=== PATIENT | female | born 1990 | race Caucasian/White ===

== ENCOUNTER → 2017-07-13 13:45 | Outpatient (CLI) | payer SELFPAY ==
[2017-07-13 19:25] LABS: Chlamydia Trachomatis by PCR Negative (Negative); Neisserai gonorrhoeae by PCR Negative (Negative); Probe Check PASS; Sample Adequacy Control PASS; Specimen Processing Control PASS
== END ==
PROVIDERS: Visit Provider Obstetrics & Gynecology
DX: Z11.3 Encounter for screening for infections with a predominantly sexual mode of transmission (principal)
CPT/HCPCS: 87491; 87591

== ENCOUNTER → 2017-07-27 16:26 | Outpatient (CLI) | payer MEDICAID, SELFPAY ==
[2017-07-27 16:46] LABS: Color, Urine Yellow (Yellow); Glucose, Dipstick Normal (Normal); Ketone-Dipstick Negative (Negative); Leukocyte Esterase-Dipstick Negative /ul (Negative); Nitrite-Dipstick Negative (Negative); Occult Blood-Urine Negative /ul (Negative); Protein-Dipstick Negative (Negative); Specific Gravity, Urine 1.015 (1.002-1.030); Urine Bilirubin Dipstick Negative (Negative); Urine Clarity Sl. Cloudy (Clear); Urine Urobilinogen Normal (Normal)
[2017-07-27 16:57] LABS: Absolute Lymphocyte Count 2.27 X10^3/ul (0.83-4.51); Absolute Neutrophil Count 6.4 X10^3/uL (2.0-7.7); Basophil# 0.04 X10^3/uL; Basophil% 0.4 % (0-1); Eosinophil# 0.15 X10^3/uL; Eosinophils% 1.6 % (0-5); Hematocrit 38.2 % (37-47); Hemoglobin 12.6 g/dl (12.0-15.0); Lymphocyte # 2.27 X10^3/ul (4.0); Lymphocyte % 23.5 % (19-41); Mean Corpuscular Hgb 28.1 pg (27.0-32.0); Mean Corpuscular Volume 85.1 fL (81-99); Mean Platelet Vol. 9.6 fl (6.2-12.0); Monocyte# 0.78 X10^3/uL; Monocyte% 8.1 % (0-10); Neutrophil # 6.39 X10^3/uL (2.7-7.7); Neutrophil % 66.3 % (47-70); Platelet Count 325 K/mm3 (150-450); RBC Distribution Width CV 14.4 % (11.6-14.6); Red Blood Count 4.49 M/mm3 (4.2-5.4); White Blood Count 9.6 K/mm3 (4.4-11.0)
[2017-07-27 17:04] LABS: POSITIVE COUNT NO; POSITIVE DIFFERENTIAL NO; POSITIVE MORPHOLOGY NO
[2017-07-27 17:20] LABS: Thyroid Stim Hormone (TSH) 1.02 uIU/mL (0.358-3.74)
[2017-07-27 17:36] LABS: Amphetamine Urine VISTA NEGATIVE (<1000 ng/mL); Barbiturate Urine VISTA NEGATIVE (< 200 ng/mL); Benzodiazepine Urine VISTA NEGATIVE (< 200 ng/mL); Cocaine Urine VISTA NEGATIVE (< 300 ng/mL); Ecstacy Urine VISTA NEGATIVE (< 500 ng/mL); Methadone Urine VISTA NEGATIVE (< 300 ng/mL); PCP Urine VISTA NEGATIVE (< 25 ng/mL); THC Urine VISTA NEGATIVE (< 50 ng/mL); Vista UDS pH Range 6
[2017-07-27 18:05] LABS: HIV - WCH Non-Reactive (Nonreactive); Rubella IgG 180.7 IU/mL
[2017-07-30 12:05] LABS: HEPATITIS B SURFACE AG Negative (Negative); Hep C Antibodies <0.1 s/co ratio (0.0-0.9)
[2017-08-03 01:05] LABS: Prenatal RPR NONREACTIVE (NONREACTIVE)
== END ==
PROVIDERS: Visit Provider Obstetrics & Gynecology
DX: Z34.81 Encounter for supervision of other normal pregnancy, first trimester (principal)
CPT/HCPCS: 80307; 81002; 84443; 85025; 86703; 86762; 86803; 87340

== ENCOUNTER → 2017-12-11 10:05 | Outpatient (CLI) | payer SELFPAY ==
[2017-12-11 14:07] LABS: Hematocrit 33.6 % (37-47); Mean Corp Hgb Conc 32.7 g/gl (32-36); Mean Corpuscular Hgb 28.3 pg (27.0-32.0); Mean Corpuscular Volume 86.4 fL (81-99); Mean Platelet Vol. 9.6 fl (6.2-12.0); Platelet Count 343 K/mm3 (150-450); RBC Distribution Width CV 14.3 % (11.6-14.6); RBC Distribution Width SD 44.3 fl (35.1-43.9); Red Blood Count 3.89 M/mm3 (4.2-5.4); White Blood Count 12.6 K/mm3 (4.4-11.0)
[2017-12-11 14:16] LABS: Scan Indicated on CBC? Y/N NO
[2017-12-11 14:17] LABS: Glucose Challenge Gest 1H 50g 91 mg/dL (70-140)
== END ==
PROVIDERS: Visit Provider Obstetrics & Gynecology
DX: Z34.83 Encounter for supervision of other normal pregnancy, third trimester (principal)
CPT/HCPCS: 36415; 82950; 85027

== ENCOUNTER → 2017-12-25 13:39 | Outpatient (CLI) | payer SELFPAY | PROVIDERS: Visit Provider Obstetrics & Gynecology | DX: N39.0 Urinary tract infection, site not specified (principal) | CPT/HCPCS: 87086; 87088 ==

== ENCOUNTER → 2018-02-04 10:26 | Outpatient (CLI) | payer SELFPAY ==
[2018-02-04 14:56] LABS: Group B Strep DNA By PCR Negative (Negative); Internal Control PASS; Probe Check PASS; Specimen Processing Control PASS
== END ==
PROVIDERS: Visit Provider Obstetrics & Gynecology
DX: Z36.85 Encounter for antenatal screening for Streptococcus B (principal)
CPT/HCPCS: 87081; 87653

== ENCOUNTER 2018-03-11 12:00 | Inpatient (IN) | payer SELFPAY ==
[2018-03-11 11:57] LABS: ROM Internal Control Test YES-OK TO RESULT pt. (Internal QC)
[2018-03-11 11:59] LABS: ROM Patient Test POSITIVE (Negative)
[2018-03-11] MEDS: Lactated Ringers 1,000 ML 50 ML IV ×2 (12:50→18:54)
[2018-03-11 13:21] LABS: Hematocrit 37.7 % (37-47); Hemoglobin 12.5 g/dl (12.0-15.0); Mean Corp Hgb Conc 33.2 g/gl (32-36); Mean Corpuscular Volume 84.5 fL (81-99); Mean Platelet Vol. 10.2 fl (6.2-12.0); Platelet Count 300 K/mm3 (150-450); RBC Distribution Width CV 15.5 % (11.6-14.6); RBC Distribution Width SD 48.1 fl (35.1-43.9); Red Blood Count 4.46 M/mm3 (4.2-5.4); White Blood Count 18.5 K/mm3 (4.4-11.0)
[2018-03-11 13:31] LABS: Scan Indicated on CBC? Y/N NO
[2018-03-11] MEDS: Nalbuphine 10 MG/ML Ampul IV (15:00)
[2018-03-11] MEDS: Ondansetron 4 MG/2 ML Vial IV (16:46)
[2018-03-11] MEDS: Oxytocin 30 units/NS 500 ml 30 UNITS/500 ML IV.SOLN 334 UNITS IV (22:20)
[2018-03-11] MEDS: Oxytocin 30 units/NS 500 ml 30 UNITS/500 ML IV.SOLN 167 UNITS IV (22:50)
--- NOTE | 2018-03-11 23:00 | OP.PCM_ITS ---
- Problem List (1) 40 weeks gestation of Status: Acute (2) Status post vacuum-assisted vaginal delivery Status: Acute (3) Shoulder dystocia, delivered Status: Acute Vaginal Delivery Maternal Presentation: Active Labor, Spontaneous Rupture of Membranes Amniotic Membrane Rupture Type: Spontaneous at home Rupture of Membrane time: 03/11/18 0430h Amniotic Fluid Description: Clear Final KAREN: 03/06/18 Gestational age: 40 Weeks and 5 Days [place] doctor who attended delivery (if requested by OB): Tia Heart Date of Procedure: 03/11/18 Pre-Operative Diagnosis: 40 5/7wga, maternal fatigue Post-Operative Diagnosis: 40 5/7wga, maternal fatigue Surgery/ Procedure Performed: Vacuum Assisted Vaginal Delivery Anesthesiologist: Jaylen Shea Type of Anesthesia: Epidural Description of Procedure: Patient was FD/+3 station on my arrival. She reported significant fatigue after pushing for more than 3 hours. On exam SVE FD/+3 with caput and direct OA. I discussed with patient and her use of vacuum, indications, benefits and risks including severe maternal laceration, scalp edema, hematoma, scalp laceration with possible infection or need for sutures, subgaleal hemorrhage, failure. The patient reported understanding and desired to proceed. FHR had remained Cat I-II. The Kiwi cap was placed at the flexion point and 500mmHg applied at 2159h. The patient pushed with good maternal effort over approximately 5 contractions with excellent descent. There were 5 pulls with no pop-offs. The vacuum was release with delivery of the brow. With continued pushing the head delivered and there was turtling of the neck. I advised the patient to stop pushing. The patient was placed supine and Bimal employed. Suprapubic pressure was subsequently performed. I reached for the posterior arm, however, there was posterior tissue dystocia also. I cut a right mediolateral episiotomy and subsequently delivered the posterior (right) arm. With continued pushing a female delivered with terminal meconium at 2219h. The cord was doubly c lamped and cut and the passed to the awaiting Pediatric Hospitalist. Cord gases were obtained. The placenta delivered spontaneously and appeared intact on inspection. The second degree left mediolateral episiotomy was repaired using 3-0 Vicryl Rapide. A right vaginal laceration was also repaired with 3-0 Rapide with hemostasis attained. Sponge and needle counts were correct x 2. Presentation: Vertex Placental Delivery Description: Spontaneous Placenta Disposition: [facility] Cord Vessel Description: 3 Vessels Nuchal Cord Compression: Without compression Cord Gases drawn per routine: ABG, VBG Cord Entanglement: None Drain: Martinez to straight drain Estimated Blood Loss: 350 ml Infant A gender: Female (1 minute): 7 (5 minute): 8 Episiotomy Description: Left Mediolateral, Vaginal Extension/lac, 2nd degree Laceration: Vaginal Extension/lac, 1st degree Medications given after delivery: IV Pitocin Complications: None
[2018-03-12] MEDS: 0.9% Saline Lock 10 ML Syringe IV (01:39)
[2018-03-12 02:00] VITALS: BP 113/59; PULSE 90; RESP 16; TEMP 36.6; O2SAT 97
[2018-03-12 08:00] VITALS: BP 100/56; PULSE 92; RESP 16; TEMP 36.8
[2018-03-12 08:30] LABS: Hematocrit 35.2 % (37-47); Hemoglobin 11.6 g/dl (12.0-15.0); Mean Corpuscular Hgb 27.8 pg (27.0-32.0); Mean Corpuscular Volume 84.2 fL (81-99); Mean Platelet Vol. 9.5 fl (6.2-12.0); Platelet Count 247 K/mm3 (150-450); RBC Distribution Width CV 15.5 % (11.6-14.6); RBC Distribution Width SD 47.3 fl (35.1-43.9); Red Blood Count 4.18 M/mm3 (4.2-5.4); White Blood Count 22.6 K/mm3 (4.4-11.0)
[2018-03-12 08:33] LABS: Scan Indicated on CBC? Y/N NO
[2018-03-12] MEDS: Ibuprofen 600 MG Tablet PO ×2 (08:57→16:36)
[2018-03-12] MEDS: Prenatal Vits Tablet 1 TABLET PO (08:57)
[2018-03-12] MEDS: Senna/Docusate Sodium 1 Tablet PO (08:58)
--- NOTE | 2018-03-12 12:54 | PCM.PN.OB ---
Patient Problems: Active and Suspected Problems 40 weeks gestation of (Acute) Status post vacuum-assisted vaginal delivery (Acute) Shoulder dystocia, delivered (Acute) Subjective: No issues overnight. nursing well. Margaret is sore and has intermittent cramping which is well controlled with Ibuprofen. OOB and ambulating without difficulty. No issues voiding. Denies heavy lochia. Objective: AVSS - Physical Exam General: Alert, Oriented x3, Cooperative, No apparent distress HEENT: Atraumatic, Normocephalic Lungs: Normal air movement Cardiovascular: Regular rate, Regular Rhythm, Normal S1, Normal S2 Abdomen: Soft, Non Tender, Non-Distended, - - Fundus firm and nontender Extremities: No edema, No Calf Tenderness Neurological: Neuro grossly intact Psych/Mental Status: Normal Affect, Appropriate, Alert and oriented to time, place, person, mood and affect Vital Signs Temp Pulse Resp BP Pulse Ox 98.3 F 92 16 100/56 L 97 03/12/18 08:00 03/12/18 08:00 03/12/18 08:00 03/12/18 08:00 03/12/18 02:00 Oxygen Delivery Method Room Air Weight: 87.09 kg Body Mass Index (BMI) 30.0 Intake and Output for Last 24 Hours 03/10/18 03/11/18 03/12/18 23:59 23:59 23:59 Intake Total 494 / 494 Output Total 1800 / 1800 Balance -1306 / -1306 Laboratory Tests Past 24 Hrs 03/11/18 03/11/18 03/12/18 12:50 12:50 08:25 WBC 18.5 H 22.6 H RBC 4.46 4.18 L Hgb 12.5 11.6 L Hct 37.7 35.2 L MCV 84.5 84.2 MCH 28.0 27.8 MCHC 33.2 33.0 RDW 15.5 H 15.5 H RDW Differential 48.1 H 47.3 H Plt Count 300 247 MPV 10.2 9.5 Blood Type A POSITIVE Antibody Screen NEGATIVE Medical Necessity - Tobacco Use Smoking Status: Never smoker Assessment/Plan All Active Problems 40 weeks gestation of (Acute) Status post vacuum-assisted vaginal delivery (Acute) Shoulder dystocia, delivered (Acute) 27yo PPD#1 s/p VAVD with shoulder dystocia -wbc elevation likely 2/2 labor, delivery - cortisol response. Repeat in am. - -Rh positive -Routine care
[2018-03-12 13:00] VITALS: BP 104/62; PULSE 76; RESP 15; TEMP 36.3
[2018-03-12 16:00] VITALS: BP 106/70; PULSE 94; RESP 20; TEMP 36.3
[2018-03-12 20:00] VITALS: BP 116/73; PULSE 90; RESP 18; TEMP 36.7; O2SAT 99
[2018-03-12] MEDS: Acetaminophen 325 MG Tablet PO (20:39)
[2018-03-13 02:00] VITALS: BP 103/62; PULSE 80; RESP 18; TEMP 36.4
[2018-03-13 05:38] LABS: Absolute Lymphocyte Count 3.21 X10^3/ul (0.83-4.51); Absolute Neutrophil Count 13.1 X10^3/uL (2.0-7.7); Basophil# 0.05 X10^3/uL; Basophil% 0.3 % (0-1); Eosinophil# 0.28 X10^3/uL; Eosinophils% 1.5 % (0-5); Hematocrit 34.6 % (37-47); Hemoglobin 11.5 g/dl (12.0-15.0); Lymphocyte # 3.21 X10^3/ul (4.0); Lymphocyte % 17.2 % (19-41); Mean Corp Hgb Conc 33.2 g/gl (32-36); Mean Corpuscular Hgb 28.4 pg (27.0-32.0); Mean Corpuscular Volume 85.4 fL (81-99); Mean Platelet Vol. 9.7 fl (6.2-12.0); Monocyte# 1.98 X10^3/uL; Monocyte% 10.6 % (0-10); Neutrophil # 13.06 X10^3/uL (2.7-7.7); Neutrophil % 69.7 % (47-70); Platelet Count 291 K/mm3 (150-450); RBC Distribution Width CV 15.5 % (11.6-14.6); RBC Distribution Width SD 47.7 fl (35.1-43.9); Red Blood Count 4.05 M/mm3 (4.2-5.4); White Blood Count 18.7 K/mm3 (4.4-11.0)
[2018-03-13 05:40] LABS: Differential Indicated SCAN CRITERIA MET; POSITIVE COUNT NO; POSITIVE DIFFERENTIAL YES; POSITIVE MORPHOLOGY NO
--- NOTE | 2018-03-13 06:41 | DCINST_ITS ---
Discharge Diet: No Restrictions Discharge Activity: May Shower, May Take a Tub Bath May resume sexual activity in: 4-6 weeks Additional Activity Instructions:: Nothing in the vagina for 4-6 weeks. You may return to work/school in 6 weeks. Additional Instructions: If you experience any of the following, contact your healthcare provider. * Bleeding that soaks a pad every hour for 2 hours * Fever 100.4 or higher * Unrelieved abdominal pain * Problems urinating (including inability to urinate or burning while urinating). * Visual changes * Severe headache * Flu-like symptoms * Pain or redness in one of both of your breasts * Pain, warmth, tenderness or swelling in your legs, especially the calf area * Frequent nausea and vomiting * Symptoms of depression or anxiety If you experience any of the following, call 911 or go to the nearest Emergency Room. * Chest pain * Problems breathing * Seizure activity * Partial or complete paralysis of a body part, slurred speech, weakness or drooping of the face, or a sudden inability to walk or hold your balance Allergies/Adverse Reactions: Allergies No Known Allergies Allergy (Verified 03/11/18 11:18) Medications to take at Discharge Evening Morrow Oil 500 mg PO TID 03/11/18 Ferrous Gluconate 325 mg PO DAILY@0800 03/11/18 Vits [Prenatabs FA] 1 tablet PO DAILY 03/11/18 Please Follow Up With: Kathie Allen MD - [phone] When: Call to make an appointment with your doctor in 6 weeks. Primary Care Physician: Care Physician,No Primary [Primary Care Provider] - Test Results: Test results from this visit will be discussed in further detail at your follow-up appointment, if applicable. Proposed Discharge Date: 03/13/18
--- NOTE | 2018-03-13 06:51 | PN.OBGYN_ITS ---
Patient Problems: Active and Suspected Problems 40 weeks gestation of (Acute) Status post vacuum-assisted vaginal delivery (Acute) Shoulder dystocia, delivered (Acute) Subjective: PPD#2 Vacuum assisted vag delivery shoulder dystocia Doing well No concerns voiced. Breast feeding. Objective: lying in bed resting. Rouses to voice - Physical Exam General: Alert, Oriented x3, Cooperative, No apparent distress HEENT: Atraumatic Neck: Supple Abdomen: Soft - Fundus firm NT at umbilicus - 1-2 cm. Psych/Mental Status: Normal Affect Vital Signs Temp Pulse Resp BP Pulse Ox 97.6 F L 80 18 103/62 99 03/13/18 02:00 03/13/18 02:00 03/13/18 02:00 03/13/18 02:00 03/12/18 20:00 Oxygen Delivery Method Room Air Weight: 87.09 kg Body Mass Index (BMI) 30.0 Intake and Output for Last 24 Hours 03/11/18 03/12/18 03/13/18 23:59 23:59 23:59 Intake Total 494 / 494 Output Total 1800 / 1800 Balance -1306 / -1306 Laboratory Tests Past 24 Hrs 03/12/18 03/13/18 08:25 05:30 WBC 22.6 H 18.7 H RBC 4.18 L 4.05 L Hgb 11.6 L 11.5 L Hct 35.2 L 34.6 L MCV 84.2 85.4 MCH 27.8 28.4 MCHC 33.0 33.2 RDW 15.5 H 15.5 H RDW Differential 47.3 H 47.7 H Plt Count 247 291 MPV 9.5 9.7 Immature Gran % (Auto) 0.700 Neut % (Auto) 69.7 Lymph % (Auto) 17.2 L [place] % (Auto) 10.6 H Eos % (Auto) 1.5 Baso % (Auto) 0.3 Absolute Neuts (auto) 13.1 H Absolute Lymphs (auto) 3.21 Total Counted Not Reportable Medical Necessity - Tobacco Use Smoking Status: Never smoker Assessment/Plan All Active Problems 40 weeks gestation of (Acute) Status post vacuum-assisted vaginal delivery (Acute) Shoulder dystocia, delivered (Acute) PPD#2 VAVD Doing well. Home today. RTO in 6 wk prn sooner.
[2018-03-13 08:00] VITALS: BP 102/68; PULSE 78; RESP 20; TEMP 36.6
[2018-03-13] MEDS: Prenatal Vits Tablet 1 TABLET PO (09:11)
[2018-03-13] MEDS: Ibuprofen 600 MG Tablet PO (09:11)
[2018-03-13 10:50] VITALS: BP 102/68; PULSE 78; RESP 20; TEMP 36.6
== END 2018-03-13 11:00 | disposition home or self-care (01) | DRG 806 ==
LOC: WPOUT 12:03
PROVIDERS: Obstetrics & Gynecology; Admitting Provider Obstetrics & Gynecology; Referring Provider Obstetrics & Gynecology; Visit Provider Obstetrics & Gynecology
DX: O66.0 Obstructed labor due to shoulder dystocia (principal); O71.4 Obstetric high vaginal laceration alone; Z37.0 Single live birth; O48.0 Post-term pregnancy; Z3A.40 40 weeks gestation of pregnancy; O77.0 Labor and delivery complicated by meconium in amniotic fluid; O69.81X0 Labor and delivery complicated by cord around neck, without compression, not applicable or unspecified
CPT/HCPCS: 59025; 59050; 84112; 85025; 85027; 86850; 86900; 99218; J7120; A4216; G0378; J2405

== ENCOUNTER → 2018-05-02 14:36 | Outpatient (CLI) | payer SELFPAY | PROVIDERS: Visit Provider Obstetrics & Gynecology | DX: Z12.4 Encounter for screening for malignant neoplasm of cervix (principal) | CPT/HCPCS: 88175; G0145 ==

== ENCOUNTER → 2018-11-07 17:13 | Outpatient (CLI) | payer SELFPAY ==
[2018-11-07 20:06] LABS: Chlamydia Trachomatis by PCR Negative (Negative); Neisserai gonorrhoeae by PCR Negative (Negative); Probe Check PASS; Sample Adequacy Control PASS; Specimen Processing Control PASS
== END ==
PROVIDERS: Referring Provider Obstetrics & Gynecology; Visit Provider Obstetrics & Gynecology
DX: Z11.3 Encounter for screening for infections with a predominantly sexual mode of transmission (principal); Z32.01 Encounter for pregnancy test, result positive
CPT/HCPCS: 87491; 87591

== ENCOUNTER → 2018-12-05 | Outpatient (CLI) | payer SELFPAY ==
[2018-12-05 15:49] LABS: Absolute Lymphocyte Count 2.18 X10^3/uL (0.83-4.51); Absolute Neutrophil Count 8.1 X10^3/uL (2.0-7.7); Basophil# 0.04 X10^3/uL; Basophil% 0.4 % (0-1); Eosinophil# 0.16 X10^3/uL; Eosinophils% 1.4 % (0-5); Hematocrit 37.4 % (37-47); Hemoglobin 12.4 g/dL (12.0-15.0); Lymphocyte # 2.18 X10^3/ul (4.0); Lymphocyte % 19.6 % (19-41); Mean Corp Hgb Conc 33.2 g/dL (32-36); Mean Corpuscular Volume 87.4 fL (81-99); Mean Platelet Vol. 9.8 fl (6.2-12.0); Monocyte# 0.62 X10^3/uL; Monocyte% 5.6 % (0-10); NRBC Flagged by Analyzer 0 % (0-5); Neutrophil # 8.07 X10^3/uL (2.7-7.7); Neutrophil % 72.6 % (47-70); Platelet Count 330 K/mm3 (150-450); RBC Distribution Width CV 13.9 % (11.6-14.6); RBC Distribution Width SD 44.6 fl (35.1-43.9); Red Blood Count 4.28 M/mm3 (4.2-5.4); White Blood Count 11.1 K/mm3 (4.4-11.0)
[2018-12-05 15:52] LABS: Color, Urine Straw (Yellow); Glucose, Dipstick Normal (Normal); Ketone-Dipstick Negative (Negative); Leukocyte Esterase-Dipstick Negative /ul (Negative); Nitrite-Dipstick Negative (Negative); Occult Blood-Urine Negative /ul (Negative); Protein-Dipstick Negative (Negative); Specific Gravity, Urine 1.015 (1.002-1.030); Urine Bilirubin Dipstick Negative (Negative); Urine Clarity Clear (Clear); Urine Urobilinogen Normal (Normal)
[2018-12-05 16:09] LABS: Thyroid Stim Hormone (TSH) 0.75 uIU/mL (0.358-3.74)
[2018-12-06 02:06] LABS: Prenatal RPR NONREACTIVE (NONREACTIVE)
[2018-12-06 13:19] LABS: HIV - WCH Non-Reactive (Nonreactive); Hepatitis B Surface Antigen Non-Reactive (Nonreactive); Hepatitis C Antibody Non-Reactive (Nonreactive); Rubella IgG 108.6 IU/mL
== END | disposition home or self-care (01) ==
LOC: WOBLAB 14:11
PROVIDERS: Visit Provider Obstetrics & Gynecology
DX: Z34.82 Encounter for supervision of other normal pregnancy, second trimester (principal)
CPT/HCPCS: 36415; 81002; 84443; 85025; 86703; 86762; 86803; 87340

== ENCOUNTER → 2019-03-06 10:12 | Outpatient (CLI) | payer SELFPAY ==
[2019-03-06 11:02] LABS: Hematocrit 33.2 % (37-47); Hemoglobin 10.8 g/dL (12.0-15.0); Mean Corp Hgb Conc 32.5 g/dL (32-36); Mean Corpuscular Hgb 27.6 pg (27.0-32.0); Mean Corpuscular Volume 84.9 fL (81-99); Mean Platelet Vol. 9.6 fl (6.2-12.0); Platelet Count 284 K/mm3 (150-450); RBC Distribution Width CV 13.6 % (11.6-14.6); RBC Distribution Width SD 42.2 fl (35.1-43.9); Red Blood Count 3.91 M/mm3 (4.2-5.4); White Blood Count 10.4 K/mm3 (4.4-11.0)
[2019-03-06 11:12] LABS: Glucose Challenge Gest 1H 50g 144 mg/dL (70-140)
== END ==
PROVIDERS: Visit Provider Obstetrics & Gynecology
DX: Z34.83 Encounter for supervision of other normal pregnancy, third trimester (principal)
CPT/HCPCS: 82950; 85027

== ENCOUNTER → 2019-03-13 09:52 | Outpatient (CLI) | payer SELFPAY ==
[2019-03-13 11:32] LABS: Glucose GTT-Gestation. Fasting 75 mg/dL (<105)
[2019-03-13 12:58] LABS: Glucose GTT-Gestational 1 Hr 130 mg/dL (<190)
[2019-03-13 13:20] LABS: Glucose GTT-Gestational 2 Hr 100 mg/dL (<165)
[2019-03-13 13:44] LABS: Glucose GTT-Gestational 3 Hr 99 L (<145)
== END ==
PROVIDERS: Referring Provider Obstetrics & Gynecology; Visit Provider Obstetrics & Gynecology
DX: O24.912 Unspecified diabetes mellitus in pregnancy, second trimester (principal); Z3A.00 Weeks of gestation of pregnancy not specified
CPT/HCPCS: 36415; 82951; 82952

== ENCOUNTER → 2019-04-22 11:01 | Outpatient (CLI) | payer SELFPAY | PROVIDERS: Referring Provider Obstetrics & Gynecology; Visit Provider Obstetrics & Gynecology | DX: Z36.85 Encounter for antenatal screening for Streptococcus B (principal) | CPT/HCPCS: 87081 ==

== ENCOUNTER 2019-05-20 21:23 | Inpatient (IN) | payer SELFPAY ==
[2019-05-20 21:32] VITALS: BMI 28.6
[2019-05-20] MEDS: Lactated Ringers 1,000 ML 50 ML IV (21:35)
[2019-05-20 21:58] LABS: Absolute Lymphocyte Count 2.74 X10^3/uL (0.83-4.51); Absolute Neutrophil Count 8.1 X10^3/uL (2.0-7.7); Basophil# 0.06 X10^3/uL; Basophil% 0.5 % (0-1); Eosinophil# 0.19 X10^3/uL; Eosinophils% 1.5 % (0-5); Hematocrit 37.1 % (37-47); Hemoglobin 12.1 g/dL (12.0-15.0); Lymphocyte # 2.74 X10^3/ul (4.0); Lymphocyte % 22.1 % (19-41); Mean Corp Hgb Conc 32.6 g/dL (32-36); Mean Corpuscular Hgb 27.9 pg (27.0-32.0); Mean Corpuscular Volume 85.7 fL (81-99); Mean Platelet Vol. 9.8 fl (6.2-12.0); Monocyte# 1.23 X10^3/uL; Monocyte% 9.9 % (0-10); NRBC Flagged by Analyzer 0 % (0-5); Neutrophil # 8.11 X10^3/uL (2.7-7.7); Neutrophil % 65.3 % (47-70); Platelet Count 260 K/mm3 (150-450); RBC Distribution Width CV 16.3 % (11.6-14.6); RBC Distribution Width SD 50.7 fl (35.1-43.9); Red Blood Count 4.33 M/mm3 (4.2-5.4); White Blood Count 12.4 K/mm3 (4.4-11.0)
[2019-05-20] MEDS: Oxytocin 30 units/NS 500 ml 30 UNITS/500 ML IV.SOLN IV (23:25)
--- NOTE | 2019-05-21 01:12 | HP.PCM_ITS ---
History Date of Admission: 05/20/19 Final KAREN: 05/19/19 Final KAREN Source: US <20 weeks Gestational age: 40 Weeks and 2 Days History of this : This is a 28 year-old, G [2], P [1], at 40 2/7 weeks gestational age presents for scheduled induction of labor Allergies No Known Allergies Allergy (Verified 03/11/18 11:18) Home Medications: Home Medications Ferrous Gluconate 325 mg PO DAILY@0800 03/11/18 Vits [Prenatabs FA] 1 tablet PO DAILY 03/11/18 Smoking Status: Never smoker Number of Fetus(es): 1 NST - FHR Rate Baby A Baseline: 115 Variability:: Moderate Accelerations:: 15 x 15 Decelerations:: None NST Reactive:: Yes FHR Category:: Category I Uterine Activity:: 2-07/10 History Past Pregnancies: Past Pregnancies Delivery Date Name GA/ Weeks Outcome Route Wt Infant Sex Labor Length Anesthesia Delivery Location Provider FOB 03/2018 Francia 40 4h second stage, shoulder dystocia VAVD [id number] F 9 Epidural [facility] Labs: Mom's Labs & Results 05/20/19 05/20/19 21:35 21:35 WBC 12.4 H RBC 4.33 Hgb 12.1 Hct 37.1 MCV 85.7 MCH 27.9 MCHC 32.6 RDW Std Deviation 50.7 H RDW Coeff of Bettye 16.3 H Plt Count 260 MPV 9.8 Immature Gran % (Auto) 0.700 Neut % (Auto) 65.3 Lymph % (Auto) 22.1 [place] % (Auto) 9.9 Eos % (Auto) 1.5 Baso % (Auto) 0.5 Absolute Neuts (auto) 8.1 H Absolute Lymphs (auto) 2.74 Nucleated RBC % 0 Blood Type A POSITIVE Antibody Screen NEGATIVE Course Did the patient receive Yes care? Labs Blood Type: A RH: POSITIVE RPR/VDRL/Syphilis Nonreactive Rubella status Immune HbSAg Negative Date Done: 12/05/18 Chlamydia Negative Gonorrhea Negative HIV/AIDS Non-Reactive Group B Strep: Negative Current Obstetrical History Gestational Diabetes No Incompetent Cervix No Infertility No IUGR No Macrosomia No Hypertension/Pre-eclampsia No Placenta Previa/Abruption No PTL/PROM No Uterine anomaly No Oligohydramnios No Polyhydramnios No Multiple gestation No Past Medical History Asthma No Diabetes No Hypertension No Heart disease No Mitral valve prolapse No Neurologic/Seizure disorder/ No Migraines Kidney disease No Liver disease No Varicosities No Clotting disorders/Hx of DVT No Thyroid Dysfunction No Other medical diseases No Psychiatric disorders No Major trauma No Abnormal PAP smear No Sleep apnea No Mammogram in the last 2 years No Social History Marital Status: Alleged father Terrance Hx Smoking No Smoking Status Never smoker Expected Infant Delivery Method: Spontaneous Vaginal Number of Visits: 11 Physical Exam Vitals: avss General: Alert, Oriented x3, Cooperative, No apparent distress HEENT: Atraumatic, Normocephalic Cardiovascular: Regular rate, Regular Rhythm, Normal S1, Normal S2 Lungs: Normal air movement Abdomen: Soft, Non Tender, Non-Distended, Gravid Extremities:: No edema Neurological: Neuro grossly intact [employer]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
[2019-05-21] MEDS: Lactated Ringers 500 ML 999 ML IV (06:44)
--- NOTE | 2019-05-21 06:44 | PCM.PN.BLA ---
Progress Note LABOR PROGRESS NOTE Contractions are mild to moderate. AVSS GEN - NAD, AAO x 3 FHR 120, moderate variability, + 10 x 10 acceleraation, + variable decelerations TOCO 3/10 min SVE 3/60/-2, moderate and midposition by my exam A/P: 28yo @ 40 2/7wga, IOL on pitocin, Cat I-II FHR -Amniotomy performed with clear fluid -Continue pitocin as tolerate by mother and fetus -Maternal and statuses overall reassuring
[2019-05-21] MEDS: fentaNYL-bupivacaine (epidural) 100 ML BAG EPIDURAL ×2 (07:58→12:07)
[2019-05-21] MEDS: Lactated Ringers 1,000 ML 200 ML IV (09:08)
[2019-05-21] MEDS: Ondansetron 4 MG/2 ML Vial IV (13:16)
[2019-05-21] MEDS: Oxytocin 30 units/NS 500 ml 30 UNITS/500 ML IV.SOLN 334 UNITS IV (13:50)
[2019-05-21] MEDS: 0.9% Saline Lock 10 ML Syringe IV (16:55)
--- NOTE | 2019-05-21 17:36 | PCM.OPRPT ---
Problem List (1) 40 weeks gestation of Status: Acute (2) (spontaneous vaginal delivery) Status: Acute Vaginal Delivery Maternal Presentation: Elective Induction Method of Induction: Pitocin, Amniotomy Amniotic Membrane Rupture Type: Artificial Rupture of Membrane time: 05/21/19 Amniotic Fluid Description: Clear Final KAREN: 05/18/19 Final KAREN Source: [place] <20 weeks Gestational age: 40 Weeks and 3 Days Date of Procedure: 05/21/19 Pre-Operative Diagnosis: 40 3/7wga Post-Operative Diagnosis: 40 3/7wga Surgery/ Procedure Performed: Spontaneous Vaginal Delivery Type of Anesthesia: Epidural Description of Procedure: Patient was FD/+3 station and pushed to deliver a male . The infant was placed on the maternal abdomen and further attended by nursery personnel. The cord was doubly clamped and cut after approximately 30 seconds of life. Cord gases were obtained. The placenta delivered spontaneously and appeared intact on inspection. A first degree perineal laceration was repaired with 3-0 Vicryl Rapide. Fundus was firm at umbilicus. Sponge and needle counts correct x 2. Presentation: Vertex Placental Delivery Description: Spontaneous Placenta Disposition: [facility] Cord Vessel Description: 3 Vessels Nuchal Cord Compression: Without compression Cord Gases drawn per routine: ABG, VBG Cord Entanglement: None Drain: Martinez to straight drain Estimated Blood Loss: 200 ml Infant A gender: Male (1 minute): 8 (5 minute): 9 Episiotomy Description: None Laceration: Midline, Perineal Extension/lac, 1st degree Medications given after delivery: IV Pitocin Complications: None
[2019-05-21 20:10] VITALS: BP 102/61; PULSE 88; RESP 16; TEMP 37
[2019-05-21] MEDS: Acetaminophen 500 MG Tablet 1000 MG PO (20:23)
[2019-05-22 00:16] VITALS: BP 98/58; PULSE 75; RESP 16; TEMP 36.8
[2019-05-22 04:00] VITALS: BP 106/71; PULSE 73; RESP 14; TEMP 36.2
[2019-05-22] MEDS: Acetaminophen 500 MG Tablet 1000 MG PO (05:04)
--- NOTE | 2019-05-22 07:32 | DCINST_ITS ---
Discharge Diet: No Restrictions Discharge Activity: Return to Normal Activity, May Shower, May Take a Tub Bath May resume sexual activity in: 6 weeks Lifting Restrictions: 10-20 lb Additional Instructions: If you experience any of the following, contact your healthcare provider. * Bleeding that soaks a pad every hour for 2 hours * Fever 100.4 or higher * Unrelieved incision or abdominal pain * Swelling, redness, discharge or bleeding from your incision or episiotomy site * Your incision begins to separate * Problems urinating (including inability to urinate or burning while urinating). * Visual changes * Severe headache * Flu-like symptoms * Pain or redness in one of both of your breasts * Pain, warmth, tenderness or swelling in your legs, especially the calf area * Frequent nausea and vomiting * Symptoms of depression or anxiety If you experience any of the following, call 911 or go to the nearest Emergency Room. * Chest pain * Problems breathing * Seizure activity * Partial or complete paralysis of a body part, slurred speech, weakness or drooping of the face, or a sudden inability to walk or hold your balance You may take Ibuprofen (Advil) or Naproxen (Aleve) over the counter for pain or cramping as needed. Use a stool softener as needed. Allergies/Adverse Reactions: Allergies No Known Allergies Allergy (Verified 03/11/18 11:18) Medications to take at Discharge Ferrous Gluconate 325 mg PO DAILY@0800 03/11/18 Vits [Prenatabs FA] 1 tablet PO DAILY 03/11/18 Please Follow Up With: Kathie Allen MD When: 6 weeks Primary Care Physician: Care Physician,No Primary [Primary Care Provider] - Test Results: Test results from this visit will be discussed in further detail at your follow- up appointment, if applicable.
--- NOTE | 2019-05-22 07:32 | PCM.DCVAG ---
Discharge Diet: No Restrictions Discharge Activity: Return to Normal Activity, May Shower, May Take a Tub Bath May resume sexual activity in: 6 weeks Lifting Restrictions: 10-20 lb Additional Instructions: If you experience any of the following, contact your healthcare provider. Bleeding that soaks a pad every hour for 2 hours Fever 100.4 or higher Unrelieved incision or abdominal pain Swelling, redness, discharge or bleeding from your incision or episiotomy site Your incision begins to separate Problems urinating (including inability to urinate or burning while urinating). Visual changes Severe headache Flu-like symptoms Pain or redness in one of both of your breasts Pain, warmth, tenderness or swelling in your legs, especially the calf area Frequent nausea and vomiting Symptoms of depression or anxiety If you experience any of the following, call 911 or go to the nearest Emergency Room. Chest pain Problems breathing Seizure activity Partial or complete paralysis of a body part, slurred speech, weakness or drooping of the face, or a sudden inability to walk or hold your balance You may take Ibuprofen (Advil) or Naproxen (Aleve) over the counter for pain or cramping as needed. Use a stool softener as needed. Allergies/Adverse Reactions: Allergies No Known Allergies Allergy (Verified 03/11/18 11:18) Medications to take at Discharge Ferrous Gluconate 325 mg PO DAILY@0800 03/11/18 Vits [Prenatabs FA] 1 tablet PO DAILY 03/11/18 Please Follow Up With: Kathie Allen MD When: 6 weeks Primary Care Physician: Care Physician,No Primary [Primary Care Provider] - Test Results: Test results from this visit will be discussed in further detail at your follow-up appointment, if applicable.
--- NOTE | 2019-05-22 08:27 | PCM.PN.OB ---
Patient Problems: Active and Suspected Problems 40 weeks gestation of (Acute) (spontaneous vaginal delivery) (Acute) 40 weeks gestation of (Acute) Subjective: Feeling well. Denies heavy lochia. Reports +flatus. is going well with no concerns. Wishes to discharge this AM. Objective: VSS. Fundus u/1, firm, midline. Lochia rubra moderate. - Physical Exam Vitals/I&O's: Vital Signs Temp Pulse Resp BP 97.2 F L 73 14 106/71 05/22/19 04:00 05/22/19 04:00 05/22/19 04:00 05/22/19 04:00 Oxygen Delivery Method Room Air Weight: 83 kg Body Mass Index (BMI) 28.6 Intake and Output for Last 24 Hours 05/20/19 05/21/19 05/22/19 23:59 23:59 23:59 Intake Total 3857.72 / 3857.72 Output Total 3800 / 3800 Balance 57.72 / 57.72 General: Alert, Oriented x3, Cooperative HEENT: Atraumatic, PERRLA, EOMI, Normocephalic Neck: Supple, No JVD, Negative Carotid Bruits Lungs: Clear to auscultation, Normal air movement Cardiovascular: Regular rate, No murmurs Abdomen: Bowel Sounds Present, Soft, Non Tender, Passing Flatus Extremities: No edema, Capillary Refill Less than 3 Seconds Skin: No rashes, No breakdown Musculoskeletal: No Tenderness to Palpation of Joints or Extremities Neurological: Cranial nerves II-XII grossly intact Psych/Mental Status: Normal Affect, Appropriate Current Medications Acetaminophen (Tylenol) 1,000 mg PO Q8H PRN PRN PRN Reason: Pain Score 1-3/10 Last Admin: 05/22/19 05:04 Dose: 1,000 mg Documented by: Bisacodyl (Dulcolax) 10 mg RECTAL UD PRN PRN Reason: If no BM Dibucaine (Dibucaine) 1 applic TOPICAL TID PRN PRN; Protocol PRN Reason: Discomfort Hydrocortisone (Hytone) 1 applic TOPICAL TID PRN PRN; Protocol PRN Reason: Discomfort Methylergonovine Maleate (Methergine) 0.2 mg IM X1 PRN PRN Reason: Excess bleeding/uterine atony Ondansetron HCl (Zofran) 4 mg IV Q4H PRN PRN PRN Reason: Nausea Senna/Docusate Sodium (Senokot-S, Jami-Colace) 1 - 2 tablet PO DAILY PRN PRN PRN Reason: Constipation Simethicone (Mylicon) 80 mg PO P[facility]S PRN PRN Reason: Indigestion/Stomach pain Sodium Chloride () 5 - 15 ml IV UD PRN PRN Reason: SALINE FLUSH Last Admin: 05/21/19 16:55 Dose: 10 ml Documented by: Medical Necessity - Tobacco Use Smoking Status: Never smoker Assessment/Plan All Active Problems 40 weeks gestation of (Acute) (spontaneous vaginal delivery) (Acute) 40 weeks gestation of (Acute) This is a 27 year-old, G [2], P [2001 PPD#1 s/p doing well. - -Routine care -Infant for circ, will d/c home this afternoon
[2019-05-22 08:30] VITALS: BP 109/64; PULSE 66; RESP 16; TEMP 36.6
[2019-05-22 11:52] VITALS: BP 101/68; PULSE 70; RESP 16; TEMP 36.8
== END 2019-05-22 15:40 | disposition home or self-care (01) | DRG 807 ==
PROVIDERS: Admitting Provider Obstetrics & Gynecology; Referring Provider Obstetrics & Gynecology; Visit Provider Obstetrics & Gynecology
DX: O48.0 Post-term pregnancy (principal); Z37.0 Single live birth; Z3A.40 40 weeks gestation of pregnancy; O76 Abnormality in fetal heart rate and rhythm complicating labor and delivery; O70.0 First degree perineal laceration during delivery; O69.81X0 Labor and delivery complicated by cord around neck, without compression, not applicable or unspecified
CPT/HCPCS: 59025; 59050; 85025; 86850; 86900; 86901; 99218; J7120; A4216; G0378; J2405

== ENCOUNTER → 2020-12-27 12:10 | Outpatient (CLI) | payer SELFPAY ==
--- NOTE | 2020-12-27 12:22 | BI_ITS ---
MAMMOGRAPHY - BILATERAL SCREENING REASON FOR EXAM: Female, 30 years old. Routine annual screening examination. PERTINENT HISTORY: Grandmother with breast cancer. TECHNIQUE: Digital bilateral breast galina (3D mammographic acquisition) in the CC and MLO projections. 2-D mediolateral oblique (MLO) and craniocaudad (CC) views of both breasts were obtained. CAD: Full Field Digital Mammography with Computer Added Detection was performed. COMPARISON: None. Baseline examination. FINDINGS: Breast Composition: The breasts are extremely dense, which lowers the sensitivity of mammography. There are no dominant masses or suspicious calcifications. No other significant abnormalities are identified. BI/SCRN MAMM (CAD)W/GALINA BILAT IMPRESSION: Negative screening mammogram. Yearly followup mammogram recommended. (A) ASSESSMENT CATEGORY: BIRADS Category 1: Negative. A letter regarding these results will be sent to the patient by the facility within 30 days. Approximately 10% of breast cancers are not detected by mammography. A normal mammogram should not delay biopsy of a clinically suspicious abnormality. [id number] Electronically Signed: Ta Damon MD at 13:21 EDT , Service support ,
== END ==
PROVIDERS: PCP Dermatology; Referring Provider Dermatology; Visit Provider Dermatology
DX: B35.1 Tinea unguium (principal); Z12.31 Encounter for screening mammogram for malignant neoplasm of breast
CPT/HCPCS: 77063; 77067; 87077; 87102; 87206

== ENCOUNTER 2021-06-03 10:11 | Outpatient (CLI) | payer SELFPAY ==
--- NOTE | 2021-06-03 10:40 | RAD_ITS ---
STUDY: X-RAY - ORBITS REASON FOR EXAM: Female, 30 years old. Pre-MRI clearance. TECHNIQUE: 2 view(s) of the orbits were obtained. COMPARISON: None. FINDINGS: Normal bilateral orbits without a metallic orbital foreign body. Normal visualized facial bones. Normal paranasal sinuses. The soft tissue structures are unremarkable. RAD/Orbits for Foreign Body IMPRESSION: No demonstrated metallic orbital foreign body. The patient is cleared for an MRI examination. Electronically Signed: Felix Shepherd MD at 10:58 EST ,
--- NOTE | 2021-06-03 10:45 | MRI_ITS ---
STUDY: BILATERAL BREAST MR WITHOUT AND WITH CONTRAST REASON FOR EXAM: Female, 30 years old. Maternal aunt with breast cancer. Dense breasts. TECHNIQUE: Multi-sequence multi-echo imaging of both breasts was performed with a dedicated breast coil. T1-weighted and T2-weighted images were performed before the administration of contrast. T1-weighted images were also performed after the administration of 13 ml of Dotarem contrast without complications. COMPARISON: Bilateral screening mammogram dated 12/27/2020. FINDINGS: RIGHT BREAST: The breast tissue is heterogeneously dense with minimal background enhancement. There are no abnormal enhancing masses or areas of non-mass enhancement in the right breast. LEFT BREAST: The breast tissue is heterogeneously dense with minimal background enhancement. Nonspecific 9 mm 5 mm enhancing lesion 4.8 cm behind the nipple and 1 cm lateral to the nipple. Separate nonspecific enhancing lesion in the left breast 4.8 cm behind the nipple and 1.7 cm medial to the nipple. Patient should have second look ultrasound of the left breast for these findings. If no lesion is seen by ultrasound, a six-month follow-up breast MRI with contrast is recommended for establishing the stability of these lesions. There are no enlarged or abnormal lymph nodes. There is no abnormality in the visualized regions of the chest or liver. MRI/Breast Bilateral W/O and W IMPRESSION: 2 small enhancing lesions in the left breast for which a second look ultrasound is recommended. If no abnormality is seen on the dedicated left breast ultrasound, a six-month follow-up breast MRI with contrast would be appropriate to establish the stability of these lesions. CATEGORY: BIRADS Category 0: Incomplete. Need additional imaging evaluation. A letter regarding these results will be sent to the patient by the facility within 30 days. Electronically Signed: Felix Shepherd, at 16:23 EST ,
== END 2021-06-03 23:59 | disposition home or self-care (01) ==
LOC: MRI 10:14
PROVIDERS: Referring Provider Obstetrics & Gynecology; Visit Provider Obstetrics & Gynecology
DX: Z01.818 Encounter for other preprocedural examination (principal); R92.2 Inconclusive mammogram; Z80.3 Family history of malignant neoplasm of breast
CPT/HCPCS: 70030; 77049; A9575; A4216; C8908

== ENCOUNTER 2021-06-16 10:40 | Outpatient (CLI) | payer SELFPAY ==
--- NOTE | 2021-06-16 10:45 | US_ITS ---
STUDY: ULTRASOUND BREAST - LEFT REASON FOR EXAM: Female, 30 years old. Abnormal breast MRI TECHNIQUE: Axial and longitudinal images of the LEFT breast were performed with a high resolution ultrasound transducer. # OF IMAGES: 74 COMPARISON: MRI 06/03/2021 FINDINGS: LEFT Breast: Heterogeneous background echotexture. At 3 o''clock, 3 cm from nipple, ultrasound confirms a 6 mm oval parallel circumscribed hypoechoic mass with some central increased echogenicity likely consistent with an intramammary lymph node. This is unlikely to correspond to the masses seen on MRI.: US/Breast Complete Unilateral IMPRESSION: Ultrasound confirms a 6 mm probable intramammary lymph node in the lateral left breast but no correlates to the mass as seen on MRI and therefore short-term follow-up MRI is recommended in 6 months. ASSESSMENT CATEGORY: BIRADS Category 3: Probably Benign - Short-Interval Follow-up Suggested. A letter regarding these results will be sent to the patient by the facility within 30 days. Electronically Signed: Jassi Doran MD at 11:41 EDT ,
== END 2021-06-16 23:59 | disposition home or self-care (01) ==
LOC: OPUS 10:41
PROVIDERS: Visit Provider Obstetrics & Gynecology
DX: R92.2 Inconclusive mammogram (principal)
CPT/HCPCS: 76641

== ENCOUNTER → 2021-08-26 | Outpatient (CLI) | payer SELFPAY ==
[2021-08-26 13:34] LABS: Color, Urine Yellow (Yellow); Glucose, Dipstick Normal (Normal); Ketone-Dipstick Negative (Negative); Leukocyte Esterase-Dipstick 500 /ul (Negative); Nitrite-Dipstick Negative (Negative); Occult Blood-Urine 50 /ul (Negative); Protein-Dipstick Negative (Negative); Urine Bilirubin Dipstick Negative (Negative); Urine Clarity Sl. Cloudy (Clear); Urine Urobilinogen Normal (Normal)
[2021-08-26 13:36] LABS: Absolute Lymphocyte Count 2.46 X10^3/uL (0.83-4.51); Absolute Neutrophil Count 5.6 X10^3/uL (2.0-7.7); Basophil# 0.04 X10^3/uL; Basophil% 0.4 % (0-1); Eosinophil# 0.11 X10^3/uL; Eosinophils% 1.2 % (0-5); Hematocrit 36.6 % (37-47); Lymphocyte # 2.46 X10^3/ul (0.83-4.51); Lymphocyte % 27.4 % (19-41); Mean Corp Hgb Conc 32.8 g/dL (32-36); Mean Corpuscular Hgb 29.1 pg (27.0-32.0); Mean Corpuscular Volume 88.6 fL (81-99); Mean Platelet Vol. 9.7 fl (6.2-12.0); Monocyte# 0.73 X10^3/uL; Monocyte% 8.1 % (0-10); NRBC Flagged by Analyzer 0 % (0-5); Neutrophil # 5.62 X10^3/uL (2.7-7.7); Neutrophil % 62.6 % (47-70); Platelet Count 331 K/mm3 (150-450); RBC Distribution Width CV 13.8 % (11.6-14.6); RBC Distribution Width SD 44.7 fl (35.1-43.9); Red Blood Count 4.13 M/mm3 (4.2-5.4)
[2021-08-26 13:54] LABS: Thyroid Stim Hormone (TSH) 0.61 uIU/mL (0.358-3.74)
[2021-08-26 15:11] LABS: HIV - WCH Non-Reactive (Nonreactive); Hepatitis B Surface Antigen Non-Reactive (Nonreactive); Hepatitis C Antibody Non-Reactive (Nonreactive); Rubella IgG Reactive (Nonreactive); Syphilis Antibodies Non-reactive
[2021-08-30 05:06] LABS: Chlamydia By Nucleic Acid AMP Negative (Negative)
[2021-08-30 11:27] LABS: Gonococcus By Nucleic Acid AMP Negative (Negative)
[2021-09-02 08:04] LABS: HPV APTIMA, High Risk Negative (Negative)
== END | disposition home or self-care (01) ==
PROVIDERS: Visit Provider Obstetrics & Gynecology
DX: Z34.81 Encounter for supervision of other normal pregnancy, first trimester (principal)
CPT/HCPCS: 36415; 81002; 84443; 85025; 86703; 86762; 86780; 86803; 87086; 87088; 87340; 87491; 87591; 87624; 88175; G0145

== ENCOUNTER → 2021-12-22 | Outpatient (CLI) | payer SELFPAY ==
[2021-12-22 11:07] LABS: Absolute Lymphocyte Count 1.82 X10^3/uL (0.83-4.51); Absolute Neutrophil Count 8.3 X10^3/uL (2.0-7.7); Basophil# 0.04 X10^3/uL; Basophil% 0.4 % (0-1); Eosinophil# 0.12 X10^3/uL; Eosinophils% 1.1 % (0-5); Hematocrit 35.8 % (37-47); Hemoglobin 11.8 g/dL (12.0-15.0); Lymphocyte # 1.82 X10^3/ul (0.83-4.51); Lymphocyte % 16.4 % (19-41); Mean Corpuscular Hgb 29.4 pg (27.0-32.0); Mean Corpuscular Volume 89.1 fL (81-99); Mean Platelet Vol. 9.5 fl (6.2-12.0); Monocyte# 0.78 X10^3/uL; NRBC Flagged by Analyzer 0 % (0-5); Neutrophil # 8.25 X10^3/uL (2.7-7.7); Neutrophil % 74.3 % (47-70); Platelet Count 313 K/mm3 (150-450); RBC Distribution Width CV 14.2 % (11.6-14.6); RBC Distribution Width SD 45.4 fl (35.1-43.9); Red Blood Count 4.02 M/mm3 (4.2-5.4); White Blood Count 11.1 K/mm3 (4.4-11.0)
[2021-12-22 11:18] LABS: Glucose Challenge Gest 1H 50g 136 mg/dL (70-140)
== END | disposition home or self-care (01) ==
LOC: WOBLAB 10:25
PROVIDERS: Visit Provider Student in an Organized Health Care Education/Training Program
DX: Z34.82 Encounter for supervision of other normal pregnancy, second trimester (principal)
CPT/HCPCS: 36415; 82950; 85025

== ENCOUNTER → 2022-01-23 | Outpatient (CLI) | payer SELFPAY ==
--- NOTE | 2022-01-23 08:55 | US_ITS ---
STUDY: ULTRASOUND BREAST - LEFT REASON FOR EXAM: Female, 31 years old. Palpable lump left breast. TECHNIQUE: Axial and longitudinal images of the LEFT breast were performed with a high resolution ultrasound transducer. # OF IMAGES: 17 COMPARISON: Comparison is made with prior study dated 06/16/2021. FINDINGS: LEFT Breast: 5 mm x 11 mm x 8 mm well-defined hypoechoic nodule at the 3 o''clock position of the breast at 1 cm from nipple. This most likely represents a fibroadenoma. Tissue diagnosis is recommended. US/Breast Limited Unilateral IMPRESSION: Stable 11 mm x 8 mm x 5 mm well-defined hypoechoic solid nodule at the 3 o''clock position of the breast at 1 cm from the nipple. This most likely represents a fibroadenoma although biopsy is recommended. ASSESSMENT CATEGORY: BIRADS Category 4: Suspicious - Biopsy Should Be Considered. A letter regarding these results will be sent to the patient by the facility within 30 days. Electronically Signed: Ta Damon MD at 14:04 EDT ,
== END | disposition home or self-care (01) ==
PROVIDERS: Visit Provider Student in an Organized Health Care Education/Training Program
DX: N63.22 Unspecified lump in the left breast, upper inner quadrant (principal)
CPT/HCPCS: 76642

== ENCOUNTER → 2022-01-26 | Outpatient (CLI) | payer SELFPAY ==
--- NOTE | 2022-01-26 14:24 | US_ITS ---
STUDY: ULTRASOUND BREAST - LEFT REASON FOR EXAM: Female, 31 years old. Left breast masses. Specific attention to the 9 o''clock position of the breast that for sinusitis or nipple. TECHNIQUE: Axial and longitudinal images of the LEFT breast were performed with a high resolution ultrasound transducer. # OF IMAGES: 61 COMPARISON: Comparison is made with prior ultrasound of the left breast dated 01/23/2022. FINDINGS: LEFT Breast: At the 3 o''clock position of the breast and 5 sinus from nipple, there is a 7 mm x 6 mm x 3 mm hypoechoic irregular nodule. Biopsy is recommended. There is also evidence of a 7 mm x 11 mm x 7 mm hypoechoic solid nodule at the 3 o''clock position breast at 3 cm from nipple. Biopsy recommended. US/Breast Limited Unilateral IMPRESSION: 2 adjacent hypoechoic solid nodules at the 3 o''clock position of the breast at 3 cm and 5 cm from nipple. Biopsy recommended. ASSESSMENT CATEGORY: BIRADS Category 4: Suspicious - Biopsy Should Be Considered. A letter regarding these results will be sent to the patient by the facility within 30 days. Electronically Signed: Ta Damon MD at 10:14 EDT ,
== END | disposition home or self-care (01) ==
PROVIDERS: Referring Provider Surgery; Visit Provider Surgery
DX: N63.20 Unspecified lump in the left breast, unspecified quadrant (principal)
CPT/HCPCS: 76642

== ENCOUNTER → 2022-02-02 | Outpatient (CLI) | payer SELFPAY ==
--- NOTE | 2022-02-02 | BRBX_PTH ---
PATIENT: TATIANA REN LOC: U#:[id number] AGE/SX: 31/F ROOM: RE02/02/[address]: Dr. Pily Sainz MD : 1990 BED: DIS: 02/02/2022 SPEC #: [id number] RECD: 02/03/22 11:02 STATUS: CAM LUIS #: [id number] MINI: 02/02/22 00:[address]: Pily Sainz DEPT: SURGICAL PATHOLOGY RECD BY: Quinn Mason ENTERED: 02/03/22 11:02 SP TYPE: BREAST BX OTHR DR: No Primary Care Phys Tissues: A - Left breast, NOS B - Left breast, NOS Procedures: Surgery Specimen Level IV HEADER OPERATION: Ultrasound-guided left breast biopsy PRE-OP DIAGNOSIS: Left breast mass TISSUE SUBMITTED: A ? Left breast mass 3:30 5 cm, B - Left breast mass 3 o?clock 5 cm MICROSCOPIC DIAGNOSIS A. Left breast at 3:30, core biopsy: Consistent with tubular adenoma. See comment. B. Left breast at 3 o?clock, core biopsy: Consistent with tubular adenoma. See comment. AM:memo 02/07/2022 COMMENT A & B. Immunohistochemistry ([id number]) supports the above diagnosis. This case was reviewed and diagnosis discussed with Dr. Sainz on 02/07/2022. MICROSCOPIC DESCRIPTION Slides are reviewed. GROSS DESCRIPTION A - Received in fixative is one container labeled with the patient's name and designated left breast. The specimen consists of two elongated fragments of lauren tissue that in aggregate measure 1.7 x 0.3 x 0.2 cm. The specimen is totally submitted in one cassette. B - Received in fixative is one container labeled with the patient's name and designated left breast 3 o'clock. The specimen consists of two elongated fragments of lauren tissue that in aggregate measure 1.7 x 0.3 x 0.2 cm. The specimen is totally submitted in one cassette. / AM:memo 02/03/2022 TC:5 CPT: 52073 x2
--- NOTE | 2022-02-02 | IMM_PTH ---
PATIENT: TATIANA REN LOC: U#:[id number] AGE/SX: 31/F ROOM: RE02/02/[address]: Dr. Pily Sainz MD : 1990 BED: DIS: 02/02/2022 SPEC #: [id number] RECD: 02/06/22 10:10 STATUS: NEHAElliott REQ #: [id number] MINI: 02/02/22 00:[address]: Pily Sainz DEPT: IMMUNOHISTOCHEMISTRY RECD BY: Susana Mattson ENTERED: 02/06/22 10:10 SP TYPE: IMMUNO OT DR: No Primary Care Phys Tissues: A - Left breast, NOS B - Left breast, NOS Procedures: SMA (add) Calponin-1(initial) PHYSICIAN & INSTITUTION [place] [id number] SPECIMEN INFORMATION: Tissue Source: A ? Left breast mass at 3:30, B ? Left breast mass at 3 o?clock Clinical Info: Left breast mass Specimen Number: [id number] A & B CPT code: 06536 x2, 65098 x2 METHODOLOGY: Deparaffinized sections of prefer/formalin-fixed tissue or PAP/DQ stained slides are incubated with monoclonal/polyclonal antibodies/oligonucleotide probes. Localization is made via biotin free immunoperoxidase method. Appropriate controls are performed and reacted as expected. Results on target cell population are indicated in the following table: RESULTS: ANTIBODY / CLONE RESULT Block A Calponin-1 (JF012P) positive Actin (1A4) positive Block B Calponin-1 (ZX672M) positive Actin (1A4) positive These tests were developed and their performance characteristics determined by [facility]. They may not have been cleared or approved by the U.S. Food and Drug Administration. The FDA has determined that such clearance or approval is not necessary. The above immunohistochemical/dualISH markers are ordered and reviewed by the Pathologist. INTERPRETATION: A. Left breast mass at 3:30, biopsy: Consistent with tubular adenoma of breast. B. Left breast mass at 3 o?clock, biopsy: Consistent with tubular adenoma of breast. AM:memo 02/07/2022
--- NOTE | 2022-02-02 15:21 | US_ITS ---
ULTRASOUND GUIDED CORE BIOPSY REASON FOR EXAM: Female, 31 years old. LEFT BREAST MASS -- 3:00, 3 CM FN PERTINENT HISTORY: Left breast masses. COMPARISON: Comparison is made with prior sonogram dated 01/26/2022 and 01/24/2012. TECHNIQUE: (All elements of maximal sterile barrier technique followed, including US elements as applicable) Under direct sonographic guidance, the surgeon perform core biopsies of a 7 mm x 6 mm x 3 mm hypoechoic irregular nodule at the 3 o''clock additional breast at 5 cm from nipple. A tissue clip marker was placed following the biopsy. IMPRESSION: Ultrasound guided core biopsy of a mass in the LEFT breast at the 3 o''clock position of breast at 5 cm from nipple without complication. Electronically Signed: Ta Damon MD at 8:05 EDT , ULTRASOUND GUIDED CORE BIOPSY REASON FOR EXAM: Female, 31 years old. LEFT BREAST MASS -- 3:00, 3 CM FN PERTINENT HISTORY: Breast masses. COMPARISON: Comparison is made with prior sonogram dated 01/26/2022 and 01/23/2022. TECHNIQUE: (All elements of maximal sterile barrier technique followed, including US elements as applicable) Under direct sonographic guidance, the surgeon performed core biopsies of the suspicious nodule at the 3:30 position the breast at 5 cm from nipple. A tissue clip marker was placed at US/US Breast Biopsy 1st Lesion IMPRESSION: Ultrasound guided core biopsy of a mass in the LEFT breast at D3 30 position of the breast and 5 cm from the nipple without complication. Electronically Signed: Ta Damon MD at 8:06 EDT ,
--- NOTE | 2022-02-02 15:59 | PCM.OPRPT ---
Report of Operation Date of Procedure: 02/02/22 Pre-Operative Diagnosis: left breast mass x 2 Post-Operative Diagnosis: same Surgery/Procedure Performed:: Left ultrasound guided breast biopsy x 2 Surgeon: Pily Sainz Type of Anesthesia: Local Specimen's removed: 1. left breast mass 3:30 5cm 2. left breast mass 3:00 5cm Estimated Blood Loss (mL): minimal Description of Procedure: Procedure: left breast ultrasound-guided core biopsy x 2 Indications: 31 year-old female with 2 hypoechoic nodules at 3/3:00 in the left breast 5 centimeters from the nipple. Risk benefits were discussed the patient and she elected to proceed with ultrasound guided core biopsy with clip placement Description of procedure: Patient was brought into the ultrasound room in the left breast was marked. A timeout was completed verifying correct patient, procedure, site, specially, prior to beginning procedure. The left breast was prepped and draped in usual sterile fashion and using local anesthesia was obtained with 1% lidocaine with epi- both lesions were through the same incision and procedures done similarly. The lesions were located with the ultrasound. Small incision was made with 11 blade to introduced the BARD MaxCore through the skin. Under ultrasound guidance multiple core samples were obtained using then 14-gauge BARD MaxCore and sent in formalin for pathology. The BARD dual Ultra (ribbon 3:30 5cm & coil 3:00 5 cm) clip was then deployed into the biopsy cavity under ultrasound guidance and a picture was taken. Upon completion procedure hemostasis was obtained and a Steri-Strip and OpSite were placed. The patient tolerated the procedure well and was discharged from the breast imaging department good condition. Complications none
== END | disposition home or self-care (01) ==
PROVIDERS: Referring Provider Surgery; Visit Provider Surgery
DX: N63.25 Unspecified lump in the left breast, overlapping quadrants (principal)
CPT/HCPCS: 19083; 19084; 88305; 88341; 88342

== ENCOUNTER → 2022-03-14 | Outpatient (CLI) | payer SELFPAY | END | disposition home or self-care (01) | LOC: LABSPEC 11:54 | PROVIDERS: Visit Provider Student in an Organized Health Care Education/Training Program | DX: Z36.85 Encounter for antenatal screening for Streptococcus B (principal) | CPT/HCPCS: 87081 ==

== ENCOUNTER 2022-04-04 06:49 | Inpatient (IN) | payer SELFPAY ==
[2022-04-04] VITALS (14 sets, daily range): BP systolic 96–120; BP diastolic 55–80; PULSE 76–98; TEMP 36.4–36.8; O2SAT 96–99; BMI 31.6
[2022-04-04] MEDS: Lactated Ringers 1,000 ML 50 ML IV (07:40)
[2022-04-04] MEDS: 0.9% Saline Lock 10 ML Syringe IV (07:47)
[2022-04-04 07:55] LABS: Absolute Lymphocyte Count 2.62 X10^3/uL (0.83-4.51); Absolute Neutrophil Count 8.3 X10^3/uL (2.0-7.7); Basophil# 0.04 X10^3/uL; Basophil% 0.3 % (0-1); Eosinophil# 0.18 X10^3/uL; Eosinophils% 1.5 % (0-5); Hematocrit 35.3 % (37-47); Hemoglobin 11.3 g/dL (12.0-15.0); Lymphocyte # 2.62 X10^3/ul (0.83-4.51); Lymphocyte % 21.3 % (19-41); Mean Corpuscular Hgb 26.7 pg (27.0-32.0); Mean Corpuscular Volume 83.5 fL (81-99); Mean Platelet Vol. 9.8 fl (6.2-12.0); Monocyte# 1.13 X10^3/uL; Monocyte% 9.2 % (0-10); NRBC Flagged by Analyzer 0 % (0-5); Neutrophil # 8.25 X10^3/uL (2.7-7.7); Platelet Count 299 K/mm3 (150-450); RBC Distribution Width CV 15.1 % (11.6-14.6); RBC Distribution Width SD 45.3 fl (35.1-43.9); Red Blood Count 4.23 M/mm3 (4.2-5.4); White Blood Count 12.3 K/mm3 (4.4-11.0)
[2022-04-04] MEDS: miSOPROStol 25 MCG TABLET VAGINAL ×3 (07:57→17:21)
--- NOTE | 2022-04-04 12:59 | PCM.HP.BLA ---
History and Physical Date of Admission: 04/04/22 HPI: 31-year-old G3, P2 at 39/3 weeks, KAREN 04/08/2022 by first trimester ultrasound, admitted for induction of labor at term. Denies regular contractions, leaking of fluid, vaginal bleeding. Reports movement. Denies headache or vision changes, chest pain or shortness of breath, nausea or vomiting, fevers or chills, diarrhea or constipation. 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 BRCA/CHEK2 positive Surgical history: Denies Medications: 1. Magnesium 2. vitamin Allergies: No known drug allergies Family history: Noncontributory Social history: Denies tobacco, alcohol, drug use Review of system: Negative otherwise stated above Physical exam BP 113/70, HR 86, Temp 97.9F, O2 sat 98% RA General: Resting in bed comfortably HEENT: Normocephalic/atraumatic, PERRLA Cardiorespiratory: No increased effort Abdomen: Soft, nontender, gravid Extremities: Minimal edema Neurologic: Cranial nerves II through XII grossly intact, no focal deficits Musculoskeletal: Strength 5/5 throughout all extremities FHR: 135/mod justino/+accel/no decel [place]: irregular Assessment/plan: 31-year-old G3, P2 at 39/3 weeks, KAREN 04/08/2022 by first trimester ultrasound, admitted for induction of labor at term. 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 ?Induction of labor with Cytotec ?GBS negative
[2022-04-04] MEDS: Oxytocin 15 Units/NS 250ml 15 UNITS/250 ML IV.SOLN 2 UNITS IV (21:26)
[2022-04-04] MEDS: LACTATED RINGERS 500 ML 999 ML IV (22:20)
[2022-04-04] MEDS: Terbutaline 1 MG/ML Vial 0.25 MG SC (22:48)
[2022-04-05] VITALS (52 sets, daily range): BP systolic 91–130; BP diastolic 51–88; PULSE 68–103; RESP 16; TEMP 36.4–36.9; O2SAT 80–100
[2022-04-05] MEDS: LACTATED RINGERS 500 ML 999 ML IV ×2 (03:30→05:35)
[2022-04-05] MEDS: fentaNYL-bupivacaine (epidural) 100 ML BAG EPIDURAL ×2 (04:08→08:37)
[2022-04-05] MEDS: Amnioinfusion- 0.9% NS 1,000 ML IV.SOLN. 1000 ML INTRA-UTER (06:59)
--- NOTE | 2022-04-05 08:21 | PN.OBGYN_ITS ---
Subjective Subjective Patient feeling increased pressure with contractions otherwise overall comfortable with epidural Objective Data Objective Data Vital Signs: Vital Signs Temp Pulse BP Pulse Ox 98.3 F 86 111/79 90 04/05/22 07:20 04/05/22 07:20 04/05/22 07:20 04/05/22 07:20 Weight: 202 lb 2 oz Body Mass Index (BMI) 31.6 Intake & Output: Intake and Output for Last 24 Hours 04/03/22 04/04/22 04/05/22 23:59 23:59 23:59 Intake Total 2502.4 / 2502.4 1353.80 / 1353.80 Output Total 3600 / 3600 900 / 900 Balance -1097.6 / -1097.6 453.80 / 453.80 Lab / Micro Data Result Diagrams: 04/04/22 07:40 Labs: Laboratory Results - last 24 hr 04/04/22 07:40: Blood Type A POSITIVE, Antibody Screen NEGATIVE Physical Exam Const alert, oriented x3, no apparent distress, average body habitus, healthy appearing and well nourished HEENT normocephalic and moist oral mucous membranes Eyes PERRL Neck full ROM Resp normal respiratory effort, no retractions and no use of accessory muscles Narrative: Cervical exam: 4-5/70/-2 Extremity normal to inspection, full ROM and no clubbing, cyanosis or edema Neuro moves all extremities and no focal motor deficits Psych mental status grossly normal, affect normal, speech normal and activity/motor behavior normal Assessment & Plan (1) : PLAN: Patient seen and examined. Initially with discussion with patient and partner about heart rate tracing, called by nursing overnight with recu rrent variable start amnioinfusion, educated patient on heart rate tracing and variable/late decelerations recurrent and possible need for section. All questions answered, patient agrees if needed. Continue to monitor heart rate tracing, cervix examined as above with increased dilation since previously checked. Patient feeling increased pressure with contractions. heart rate tracing now improved. Educated patient on results, patient elects to continue expectant management. We will continue current management
[2022-04-05] MEDS: Lactated Ringers 1,000 ML 200 ML IV (08:37)
[2022-04-05] MEDS: Methylergonovine 0.2 MG/ML Ampul IM (09:11)
--- NOTE | 2022-04-05 09:19 | OP.PCM_ITS ---
Vaginal Delivery Findings Description of Procedure: Normal spontaneous vaginal delivery of a viable female infant, vertex LYLE. Head and shoulders delivered with ease. Cord clamped and cut. Baby handed off to patient. Placenta delivered via cord traction and fundal massage. IV oxytocin initiated to facilitate uterine contractions. IM Methergine given prophylactically for quick and second stage of labor. First-degree midline perineal laceration noted and repaired in typical fashion. EBL 250 cc Apgars 9 /9
[2022-04-05] MEDS: 0.9% Saline Lock 10 ML Syringe IV (10:45)
[2022-04-05] MEDS: Ibuprofen 600 MG Tablet PO (13:48)
[2022-04-05] MEDS: Acetaminophen 500 MG Tablet 1000 MG PO (17:19)
[2022-04-06] MEDS: Ibuprofen 600 MG Tablet PO (00:18)
[2022-04-06 03:49] VITALS: BP 109/70; PULSE 77; RESP 16; TEMP 36.7
--- NOTE | 2022-04-06 07:31 | PCM.PN.OB ---
Subjective Subjective day 1. Lochia minimal. Feeding going well. Objective Data Objective Data Vital Signs: Vital Signs Temp Pulse Resp BP Pulse Ox O2 Del Method 98.0 F 77 16 109/70 97 Room Air 04/06/22 03:49 04/06/22 03:49 04/06/22 03:49 04/06/22 03:49 04/05/22 23:58 04/05/22 23:58 Oxygen Delivery Method Room Air Weight: 91.682 kg Body Mass Index (BMI) 31.6 Intake & Output: Intake and Output for Last 24 Hours 04/04/22 04/05/22 04/06/22 23:59 23:59 23:59 Intake Total 2502.4 / 2502.4 2327.26 / 2327.26 Output Total 3600 / 3600 3400 / 3400 Balance -1097.6 / -1097.6 -1072.74 / -1072.74 Lab / Micro Data Attestation: I reviewed the patient's lab results. Result Diagrams: 04/04/22 07:40 Physical Exam Const alert, oriented x3 and no apparent distress HEENT normocephalic Head and Scalp: atraumatic Neck full ROM Resp normal respiratory effort Cardio regular rate GI normal to inspection, nondistended, normoactive bowel sounds GI Narrative: Uterus 2 cm below umbilicus Back/Spine normal ROM Extremity normal to inspection Extremity Narrative: Minimal pedal edema Neuro no focal motor deficits and no sensory deficits noted Psych mental status grossly normal and affect normal Assessment & Plan (1) Vaginal delivery: PLAN: day 1 status post . Breast-feeding. Desires home-going today.
--- NOTE | 2022-04-06 07:32 | DCINST_ITS ---
Discharge Instructions Diet Discharge Diet: No restrictions Activity Discharge Activity: Return to Normal Activity and May Shower May resume sexual activity in: 4-6 weeks Weight Bearing Status: Weight bearing as tolerated Lifting Restrictions: No greater than 25 pounds Dressing / Incision Call your doctor if you observe: Fever of 101 or Higher, Change in Color, Inability to urinate, Using more than 1 pad per hour, Shortness of breath, Dizziness, Swelling in the ankles, Chest pain and Calf discomfort Follow Up Care Please Follow Up With: Melani Salazar DO When: 6-week visit Test Results: Test results from this visit will be discussed in further detail at your follow- up appointment, if applicable. Discharge Plan Admission Admit Date/Time: 04/04/22 06:49 Primary Reason for Your Visit: Vaginal delivery Attending Provider: Zaki Salazar Primary Care Provider: Care PhysicianDeana Primary Discharge Orders/Prescriptions Prescriptions: No Action Prenatabs FA 1 TABLET tablet 1 tab PO DAILY magnesium carb,citrate,oxide 300 mg magnesium Tablet 300 mg PO PRN PRN (Reason: constipation ) Referrals / Follow Up: Care Physician,Deana Primary [Primary Care Provider] - Disposition Disposition (needs filled in before D/C Order can be placed): Home, Self Care
[2022-04-06 08:08] VITALS: BP 103/67; PULSE 113; O2SAT 97
[2022-04-06] MEDS: Acetaminophen 500 MG Tablet 1000 MG PO (08:14)
[2022-04-06 08:16] VITALS: BP 103/67; PULSE 87; RESP 16; TEMP 36.6; O2SAT 100
== END 2022-04-06 10:25 | disposition home or self-care (01) | DRG 807 ==
PROVIDERS: Admitting Provider Obstetrics & Gynecology; Referring Provider Student in an Organized Health Care Education/Training Program; Visit Provider Obstetrics & Gynecology
DX: O70.0 First degree perineal laceration during delivery (principal); Z37.0 Single live birth; Z3A.39 39 weeks gestation of pregnancy
CPT/HCPCS: 59025; 59050; 85025; 86850; 86900; 86901; 99221; J7030; J7120; A4216; G0378

== ENCOUNTER → 2022-06-13 | Outpatient (CLI) | payer SELFPAY ==
--- NOTE | 2022-06-13 10:16 | BI_ITS ---
MAMMOGRAPHY - BILATERAL SCREENING 3-D TOMOSYNTHESIS REASON FOR EXAM: Female, 31 years old. SCREENING PERTINENT HISTORY: Strong family history TECHNIQUE: 2-D mammograms and 3-D Tomosynthesis of the breast (s) were performed. CAD was performed. COMPARISON: 12/27/2020 FINDINGS: The breast composition are extremely dense which lowers the sensitivity of mammography Scattered benign calcifications are seen. No dense spiculated masses or suspicious microcalcifications are identified. No architectural distortion is identified. There is no skin thickening or retraction. There has been no significant change since the prior study. BI/SCRN MAMM (CAD)W/GALINA BILAT IMPRESSION: No mammographic signs of malignancy. Routine yearly mammograms recommended. ASSESSMENT CATEGORY: BIRADS Category 2: Benign. A letter regarding these results will be sent to the patient by the facility within 30 days. FOLLOW UP RECOMMENDATION: Yearly follow up mammogram recommended. (A) Approximately 10% of breast cancers are not detected by mammography. A normal mammogram should not delay biopsy of a clinically suspicious abnormality. Electronically Signed: Joon Chambers MD at 11:25 EDT ,
== END | disposition home or self-care (01) ==
PROVIDERS: Referring Provider Student in an Organized Health Care Education/Training Program; Visit Provider Student in an Organized Health Care Education/Training Program
DX: Z12.31 Encounter for screening mammogram for malignant neoplasm of breast (principal)
CPT/HCPCS: 77063; 77067

== ENCOUNTER 2023-12-27 07:42 | Inpatient (IN) | payer SELFPAY ==
[2023-12-27] VITALS (48 sets, daily range): BP systolic 91–126; BP diastolic 53–76; PULSE 76–111; RESP 15–18; TEMP 36.3–36.6; O2SAT 96–100; BMI 31.4
[2023-12-27] MEDS: Lactated Ringers 1,000 ML 50 ML IV (07:50)
[2023-12-27 08:09] LABS: Absolute Lymphocyte Count 2.74 X10^3/uL (0.83-4.51); Absolute Neutrophil Count 8.6 X10^3/uL (2.0-7.7); Basophil# 0.05 X10^3/uL; Basophil% 0.4 % (0-1); Eosinophil# 0.17 X10^3/uL; Eosinophils% 1.3 % (0-5); Hematocrit 33.1 % (37-47); Hemoglobin 10.6 g/dL (12.0-15.0); Lymphocyte # 2.74 X10^3/ul (0.83-4.51); Lymphocyte % 20.8 % (19-41); Mean Corpuscular Hgb 25.6 pg (27.0-32.0); Mean Platelet Vol. 10.1 fl (6.2-12.0); Monocyte% 11.4 % (0-10); NRBC Flagged by Analyzer 0 % (0-5); Neutrophil % 65.4 % (47-70); Platelet Count 343 K/mm3 (150-450); RBC Distribution Width CV 16.4 % (11.6-14.6); RBC Distribution Width SD 46.5 fl (35.1-43.9); Red Blood Count 4.14 M/mm3 (4.2-5.4); White Blood Count 13.2 K/mm3 (4.4-11.0)
[2023-12-27] MEDS: Oxytocin 15 Units/NS 250ml 15 UNITS/250 ML IV.SOLN 2 UNITS IV (08:18)
[2023-12-27 08:48] LABS: Syphilis Antibodies Non-reactive
[2023-12-27] MEDS: LACTATED RINGERS 500 ML 999 ML IV ×2 (09:32→19:10)
[2023-12-27] MEDS: 0.9% Normal Saline Single 100 ML IV.SOLN. INTRA-UTER (10:25)
--- NOTE | 2023-12-27 10:37 | PCM.PN.BLA ---
Progress Note at bedside to check on pt. she is doing well. Assessment & Plan Assessment/Plan (1) Encounter for planned induction of labor: PLAN: Cvx 1/t/h, posterior. Intracervical pearson placed in usual fashion and filled with 30 cc saline. Bedside TAUS confirms vertex presentation. 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
[2023-12-27] MEDS: Lactated Ringers 1,000 ML 999 ML IV (12:33)
[2023-12-27] MEDS: fentaNYL-bupivacaine (epidural) 100 ML BAG EPIDURAL ×2 (13:39→18:12)
--- NOTE | 2023-12-27 14:03 | PCM.PN.BLA ---
Progress Note pt doing well and comfortable with epidural. Assessment & Plan Assessment/Plan (1) Encounter for planned induction of labor: PLAN: Cvx /-2, head well applied. AROM performed in usual fashion for scant clear fluid. Category 1 tracing. Cont current management.
[2023-12-27] MEDS: Oxytocin 15 Units/NS 250ml 15 UNITS/250 ML IV.SOLN 334 UNITS IV (20:14)
--- NOTE | 2023-12-27 20:51 | HP.PCM.OB_ITS ---
HPI - General General Date of Admission: 12/27/23 Date of Service: 12/27/23 Chief Complaint: Induction of labor HPI Narrative TATIANA REN, is a 33 F who presents for induction of labor. History of LGA and shoulder dystocia. Maternal Data Information Final KAREN: [birth year] Gestational age: 39+1 [facility] Medical History Shoulder dystocia during labor and delivery BRCA gene mutation positive in female History of episiotomy macrosomia Home Medications ?Medication ?Instructions ?Recorded ?Last Taken ?Type vits,calcium no.78-iron 1 tab PO DAILY 03/11/18 12/27/23 06:00 History fumarate-folic acid 29 mg-1 mg tablet (Prenatabs FA) magnesium carb,citrate,oxide 300 mg PO PRN PRN constipation 04/04/22 Unknown His tory Allergy/AdvReac Type Severity Reaction Status Date / Time No Known Allergies Allergy Verified 12/27/23 07:43 Family History Aunt Breast cancer maternal Grandmother Breast cancer maternal maternal great grandma also had breast cancer Grandfather Heart disease Uncle Heart disease Surgical History History of left breast biopsy Social History Smoking Status: Never smoker alcohol intake: never substance use type: does not use History 5 Elective abortions Hx Para 3 Spontaneous abortions Hx # Term Pregnancies Ectopic pregnancies Hx # Pregnancies Multiple births # of living children NST FHR Rate Baby A Variability:: Moderate Accelerations:: 15 x 15 Decelerations:: None NST Reactive:: Yes FHR Category:: Category I Uterine Activity:: none ROS Constitutional Constitutional: Denies fatigue, fever(s) or malaise Eyes Eyes: Denies change in vision ENT HEENT: Denies dizziness or headache(s) Cardiovascular Cardiovascular: Denies chest pain, dyspnea or lightheadedness Respiratory/Chest Respiratory/Chest: Denies cough or dyspnea Gastrointestinal Gastrointestinal: Denies change in bowel habits Genitourinary Genitourinary: Denies burning urination or genital lesions Integumentary Integumentary: Denies rash Neurologic Neurologic: Denies confusion, dizziness, headache(s), numbness or weakness Vital Signs Vital Signs Vital Signs: 12/27/23 07:36 12/27/23 07:36 12/27/23 07:36 Temperature Temperature Source Pulse Rate 85 Respiratory Rate Blood Pressure 109/64 BP Systolic 109 BP Diastolic 64 Pulse Ox 96 12/27/23 07:36 12/27/23 07:36 12/27/23 07:36 Temperature 97.8 F Temperature Source Temporal Pulse Rate Respiratory Rate 16 Blood Pressure BP Systolic BP Diastolic Pulse Ox 12/27/23 09:30 12/27/23 09:30 12/27/23 09:30 Temperature Temperature Source Temporal Pulse Rate 76 Respiratory Rate Blood Pressure 91/54 L BP Systolic 91 BP Diastolic 54 Pulse Ox 12/27/23 09:30 12/27/23 09:30 12/27/23 09:30 Temperature 97.7 F L Temperature Source Pulse Rate Respiratory Rate 16 Blood Pressure BP Systolic BP Diastolic Pulse Ox 98 12/27/23 10:13 12/27/23 10:13 12/27/23 10:13 Temperature Temperature Source Temporal Pulse Rate 80 Respiratory Rate Blood Pressure 98/55 L BP Systolic 98 BP Diastolic 55 Pulse Ox 12/27/23 10:13 12/27/23 10:13 12/27/23 10:13 Temperature 97.9 F Temperature Source Pulse Rate 83 Respiratory Rate 16 Blood Pressure BP Systolic BP Diastolic Pulse Ox 12/27/23 10:13 12/27/23 11:15 12/27/23 11:15 Temperature Temperature Source Temporal Pulse Rate Respiratory Rate Blood Pressure 100/58 L BP Systolic 100 BP Diastolic 58 Pulse Ox 97 12/27/23 11:15 12/27/23 11:15 12/27/23 11:15 Temperature Temperature Source Pulse Rate 84 Respiratory Rate 16 Blood Pressure BP Systolic BP Diastolic Pulse Ox 97 12/27/23 11:15 12/27/23 11:15 12/27/23 11:15 Temperature 97.9 F Temperature Source Pulse Rate 89 Respiratory Rate Blood Pressure BP Systolic BP Diastolic Pulse Ox 96 12/27/23 12:42 12/27/23 12:42 12/27/23 12:42 Temperature Temperature Source Temporal Pulse Rate 88 Respiratory Rate Blood Pressure 105/70 BP Systolic 105 BP Diastolic 70 Pulse Ox 12/27/23 12:42 12/27/23 12:42 12/27/23 13:24 Temperature 97.8 F Temperature Source Pulse Rate 86 Respiratory Rate 15 Blood Pressure BP Systolic BP Diastolic Pulse Ox 12/27/23 13:24 12/27/23 13:29 12/27/23 13:29 Temperature Temperature Source Pulse Rate 88 Respiratory Rate Blood Pressure BP Systolic BP Diastolic Pulse Ox 99 98 12/27/23 13:34 12/27/23 13:34 12/27/23 13:34 Temperature Temperature Source Pulse Rate 89 Respiratory Rate 16 Blood Pressure 110/69 BP Systolic 110 BP Diastolic 69 Pulse Ox 12/27/23 13:34 12/27/23 13:39 12/27/23 13:39 Temperature Temperature Source Pulse Rate 81 Respiratory Rate Blood Pressure 103/55 L BP Systolic 103 BP Diastolic 55 Pulse Ox 100 12/27/23 13:39 12/27/23 13:39 12/27/23 13:44 Temperature Temperature Source Pulse Rate Respiratory Rate 15 Blood Pressure 102/57 L BP Systolic 102 BP Diastolic 57 Pulse Ox 100 12/27/23 13:44 12/27/23 13:44 12/27/23 13:44 Temperature Temperature Source Pulse Rate 82 78 Respiratory Rate Blood Pressure BP Systolic BP Diastolic Pulse Ox 100 12/27/23 13:49 12/27/23 13:49 12/27/23 13:50 Temperature Temperature Source Pulse Rate 87 Respiratory Rate Blood Pressure 97/58 L BP Systolic 97 BP Diastolic 58 Pulse Ox 98 12/27/23 13:50 12/27/23 13:50 12/27/23 13:54 Temperature Temperature Source Pulse Rate 86 Respiratory Rate 15 Blood Pressure 101/61 BP Systolic 101 BP Diastolic 61 Pulse Ox 12/27/23 13:54 12/27/23 13:54 12/27/23 13:54 Temperature Temperature Source Pulse Rate 91 Respiratory Rate 16 Blood Pressure BP Systolic BP Diastolic Pulse Ox 98 12/27/23 13:59 12/27/23 13:59 12/27/23 14:04 Temperature Temperature Source Pulse Rate 87 Respiratory Rate Blood Pressure 98/53 L BP Systolic 98 BP Diastolic 53 Pulse Ox 100 12/27/23 14:04 12/27/23 14:04 12/27/23 14:04 Temperature Temperature Source Pulse Rate 97 Respiratory Rate 16 Blood Pressure BP Systolic BP Diastolic Pulse Ox 98 12/27/23 14:48 12/27/23 14:48 12/27/23 14:48 Temperature Temperature Source Pulse Rate 86 Respiratory Rate 16 Blood Pressure 97/58 L BP Systolic 97 BP Diastolic 58 Pulse Ox 12/27/23 14:48 12/27/23 14:48 12/27/23 14:48 Temperature 97.4 F L Temperature Source Pulse Rate 94 Respiratory Rate Blood Pressure BP Systolic BP Diastolic Pulse Ox 98 12/27/23 15:42 12/27/23 15:42 12/27/23 16:00 Temperature Temperature Source Temporal Pulse Rate 82 Respiratory Rate Blood Pressure 97/57 L BP Systolic 97 BP Diastolic 57 Pulse Ox 12/27/23 16:00 12/27/23 16:00 12/27/23 16:00 Temperature 97.6 F L Temperature Source Pulse Rate Respiratory Rate 16 Blood Pressure BP Systolic BP Diastolic Pulse Ox 98 12/27/23 17:06 12/27/23 17:06 12/27/23 17:07 Temperature Temperature Source Temporal Pulse Rate 86 Respiratory Rate Blood Pressure 101/70 BP Systolic 101 BP Diastolic 70 Pulse Ox 12/27/23 17:07 12/27/23 17:07 12/27/23 17:07 Temperature 97.6 F L Temperature Source Pulse Rate Respiratory Rate 16 Blood Pressure BP Systolic BP Diastolic Pulse Ox 100 12/27/23 18:11 12/27/23 18:11 12/27/23 19:20 Temperature Temperature Source Temporal Pulse Rate 78 Respiratory Rate Blood Pressure 100/58 L BP Systolic 100 BP Diastolic 58 Pulse Ox 12/27/23 19:20 12/27/23 19:20 12/27/23 19:20 Temperature Temperature Source Pulse Rate 80 Respiratory Rate 16 Blood Pressure 107/72 BP Systolic 107 BP Diastolic 72 Pulse Ox 12/27/23 19:20 12/27/23 19:20 12/27/23 20:24 Temperature 97.5 F L Temperature Source Pulse Rate Respiratory Rate Blood Pressure 118/57 L BP Systolic 118 BP Diastolic 57 Pulse Ox 100 12/27/23 20:24 12/27/23 20:24 12/27/23 20:29 Temperature Temperature Source Pulse Rate 111 H 92 Respiratory Rate Blood Pressure BP Systolic BP Diastolic Pulse Ox 98 12/27/23 20:29 12/27/23 20:34 12/27/23 20:34 Temperature Temperature Source Pulse Rate 89 Respiratory Rate Blood Pressure BP Systolic BP Diastolic Pulse Ox 98 98 12/27/23 20:39 12/27/23 20:39 12/27/23 20:39 Temperature Temperature Source Pulse Rate 88 83 Respiratory Rate Blood Pressure 118/62 BP Systolic 118 BP Diastolic 62 Pulse Ox 12/27/23 20:39 12/27/23 20:44 12/27/23 20:44 Temperature Temperature Source Pulse Rate 86 Respiratory Rate Blood Pressure BP Systolic BP Diastolic Pulse Ox 97 98 12/27/23 20:49 12/27/23 20:49 Temperature Temperature Source Pulse Rate 86 Respiratory Rate Blood Pressure BP Systolic BP Diastolic Pulse Ox 98 Weight Weight: 90.945 kg Body Mass Index (BMI) 31.4 Physical Exam Const alert and no apparent distress General Appearance: cooperative HEENT normocephalic Resp normal respiratory effort GI soft to palpation GI Narrative: gravid, nontender, appropriate for gestational age Extremity no calf tenderness General Extremity: edema Skin no wounds Rashes: No rashes noted Psych activity/motor behavior normal Labs Labs Labs: Blood Type A POSITIVE Antibody Screen NEGATIVE Hct 33.1 % (37-47) L Hgb 10.6 g/dL (12.0-15.0) L Syphilis Total Ab Non-reactive Rubella IgG Antibody Reactive (Nonreactive) Hep Bs Antigen Non-Reactive (Nonreactive) Hepatitis C Antibody Non-Reactive (Nonreactive) Hepatitis C Ab (EIA) <0.1 s/co ratio (0.0-0.9) Chlamydia DNA (MAGEN) Negative (Negative) N.gonorrhoeae DNA (MAGEN) Negative (Negative) HIV 1&2 Antibody Non-Reactive (Nonreactive) Glucose 1 Hr 50 gm 136 mg/dL (70-140) Gest Glucose Tolerance MG/DL Group B Strep DNA Negative (Negative) Rhogam given: No Assessment & Plan (1) Encounter for planned induction of labor: (2) 39 weeks gestation of : PLAN: Plan Martinez bulb Pit PRN epidural
--- NOTE | 2023-12-27 20:51 | EX.PCM.OBRPT ---
Assessment & Plan (1) (spontaneous vaginal delivery): Maternal Data Information Final KAREN: [birth year] Gestational age: 39+1 Vaginal Delivery Maternal Presentation Maternal Presentation: Elective Induction Maternal Presentation: Hx of LGA and shoulder dystocia. EFW >90% Type of Induction: Pitocin, Martinez Bulb and Amniotomy Operative Information Date of Procedure: 12/27/23 Pre-Operative Diagnosis: Term induction of labor Post-Operative Diagnosis: Surgery / Procedure Performed: Spontaneous Vaginal Delivery Type of Anesthesia: Epidural Drain: Martinez to straight drain Estimated Blood Loss: 100 cc Time of Delivery: 20:13 Findings Description of Procedure: After progressing to complete patient pushed for approximately 45 minutes over an intact peritoneum. Delivered OA. There was a cord around the neck x 1 that was easily reduced. The anterior and posterior shoulders delivered with gentle traction. The infant was placed on the maternal abdomen. The cord was clamped and cut. The placenta was delivered with manual tractions. A 1st degree laceration was repaired. Presentation: Vertex and PREMA Amniotic Membrane Rupture Type: Spontaneous Amniotic Fluid Description: Clear Placental Delivery Description: Spontaneous Placenta Disposition: [facility] Cord Vessel Description: 3 Vessels Cord Entanglement: Around neck x 1, loose Nuchal Cord Compression: Without compression Infant A Gender: Male (1 minute): 8 (5 minute): 9 Delayed Cord Clamping: Yes Post Vaginal Delivery Medications Given After Delivery: IV Pitocin Episiotomy Description: None Laceration: Midline and 1st degree Complication Complications: None
[2023-12-27] MEDS: Oxytocin 15 Units/NS 250ml 15 UNITS/250 ML IV.SOLN 83 UNITS IV (20:59)
[2023-12-28] VITALS (11 sets, daily range): BP systolic 99–121; BP diastolic 58–79; PULSE 78–101; RESP 16; TEMP 36.4–36.8; O2SAT 97–98
[2023-12-28] MEDS: Ibuprofen 600 MG Tablet PO ×3 (04:26→20:18)
--- NOTE | 2023-12-28 07:20 | PN.OBGYN_ITS ---
Subjective Subjective Doing well. Ambulating and voiding without difficulty. Breast feeding. Mild lochia. Would like to go after 24 hours if OK Objective Data Objective Data Vital Signs: Vital Signs Temp Pulse Resp BP Pulse Ox O2 Del Method 97.7 F L 85 16 119/74 98 Room Air 12/28/23 04:30 12/28/23 04:30 12/28/23 04:30 12/28/23 04:30 12/28/23 04:30 12/28/23 04:30 Oxygen Delivery Method Room Air Weight: 90.945 kg Body Mass Index (BMI) 31.4 Intake & Output: Intake and Output for Last 24 Hours 12/26/23 12/27/23 12/28/23 23:59 23:59 23:59 Intake Total 3301.69 / 3551.69 250 / 250 Output Total 1100 / 1100 2200 / 2200 Balance 2201.69 / 2451.69 -1950 / -1950 Lab / Micro Data 12/27/23 07:50 Labs: Laboratory Results - last 24 hr 12/27/23 07:50: WBC 13.2 H, RBC 4.14 L, Hgb 10.6 L, Hct 33.1 L, MCV 80.0 L, MCH 25.6 L, MCHC 32.0, RDW Std Deviation 46.5 H, RDW Coeff of Bettye 16.4 H, Plt Count 343, MPV 10.1, Immature Gran % (Auto) 0.700, Neut % (Auto) 65.4, Lymph % (Auto) 20.8, [place] % (Auto) 11.4 H, Eos % (Auto) 1.3, Baso % (Auto) 0.4, Absolute Neuts (auto) 8.6 H, Absolute Lymphs (auto) 2.74, Nucleated RBC % 0, Syphilis Total Ab Non-reactive, Blood Type A POSITIVE, Antibody Screen NEGATIVE ROS Constitutional Constitutional: Denies fatigue, fever(s) or malaise Eyes Eyes: Denies change in vision ENT HEENT: Denies dizziness or headache(s) Cardiovascular Cardiovascular: Denies chest pain, dyspnea or lightheadedness Respiratory/Chest Respiratory/Chest: Denies cough or dyspnea Gastrointestinal Gastrointestinal: Denies change in bowel habits Genitourinary Genitourinary: Denies burning urination or genital lesions Integumentary Integumentary: Denies rash Neurologic Neurologic: Denies confusion, dizziness, headache(s), numbness or weakness Physical Exam Const alert and no apparent distress Narrative: Fundus firm, below umbilicus. Assessment & Plan (1) (spontaneous vaginal delivery): (2) 39 weeks gestation of : PLAN: Plan Routine care
== END 2023-12-28 20:52 | disposition home or self-care (01) | DRG 807 ==
PROVIDERS: Admitting Provider Obstetrics & Gynecology; Referring Provider Obstetrics & Gynecology; Visit Provider Obstetrics & Gynecology
DX: O69.81X0 Labor and delivery complicated by cord around neck, without compression, not applicable or unspecified (principal); Z37.0 Single live birth; O70.0 First degree perineal laceration during delivery; Z3A.39 39 weeks gestation of pregnancy
CPT/HCPCS: 59025; 59050; 76815; 85025; 86780; 86850; 86900; 86901; 99221; J7120; G0378